=== PATIENT | female | born 1995 | race American Indian/Alaskan Native ===

== ENCOUNTER 2021-03-11 15:21 | Emergency (ER) | payer MEDICAID ==
[2021-03-11] MEDS ORDERED: SODIUM CHLORIDE 0.9% 1000 ML 1,000 ML IV ONE (16:26)
[2021-03-11] MEDS ORDERED: DICYCLOMINE 10 MG CAP PO ONE (16:27)
[2021-03-11] MEDS ORDERED: FAMOTIDINE 20 MG/2 ML INJ IV ONE (16:27)
[2021-03-11] MEDS ORDERED: METOCLOPRAMIDE 10 MG/2 ML INJ IV ONE (16:27)
[2021-03-11] MEDS ORDERED: diphenhydrAMINE 50 MG/ML VIAL IV ONE (16:27)
[2021-03-11 16:58] LABS: Basophils % (Auto) 0.2 % (0.0-1.8); Eosinophils % (Auto) 0.3 % (0.0-4.3); Hematocrit 39.1 % (30.3-42.9); Hemoglobin 12.5 gm/dl (10.1-14.3); Lymphocytes # (Auto) 1.3 K/mm3 (1.2-5.4); Lymphocytes % (Auto) 15.1 % (13.4-35.0); Mean Corpuscular HGB Conc 32 % (30-34); Mean Corpuscular Volume 78 fl (79-97); Monocytes # (Auto) 0.4 K/mm3 (0.0-0.8); Monocytes % (Auto) 4.6 % (0.0-7.3); Platelet Count 186 K/mm3 (140-440); Red Blood Count 5.01 M/mm3 (3.65-5.03); Red Cell Distribution Width 13.6 % (13.2-15.2)
[2021-03-11 17:09] LABS: Alanine Aminotransferase 11 units/L (7-56); Albumin 4.7 g/dL (3.9-5); Blood Urea Nitrogen 10 mg/dL (7-17); Calcium 9.2 mg/dL (8.4-10.2); Hemolysis Index 8
[2021-03-11 17:15] LABS: BUN/Creatinine Ratio 17
[2021-03-11 18:21] LABS: Bilirubin,Urine NEG (Negative); Blood,Urine LG (Negative); Color,Urine Yellow (Yellow); Mucus,Urine FEW /HPF; Protein,Urine <15 mg/dL mg/dL (Negative); Urobilinogen,Urine < 2.0 mg/dL (<2.0)
--- NOTE | 2021-03-11 18:33 | Emergency Department Report ---
ED Abdominal Pain HPI - General Chief Complaint: Abdominal Pain Stated Complaint: ABD PAIN Time Seen by Provider: 03/11/21 16:06 Source: patient Mode of arrival: Ambulatory Limitations: No Limitations - History of Present Illness Initial Comments: This is a 25-year-old female nontoxic, well nourished in appearance, no acute signs of distress presents to the ED with c/o of nausea and vomiting and abdominal pain several days. Patient describes vomiting as food content and yellow gastric acid. Patient describes abdominal pain as cramping and aching with level of 8/10 diffuse. Patient denies chest pain, short of breath, fever, hemoptysis, blood in stool, chills, headache, stiff neck, numbness or tingling. Patient denies any diarrhea or constipation. Denies any blood in stool. Patient denies any recent travels. Patient denies any drug allergies or significant past medical history. MD Complaint: abdominal pain -: week(s) Location: diffuse Radiation: none Migration to: no migration Severity scale (0 -10): 8 Quality: cramping, aching Consistency: constant Improves With: nothing Worsens With: nothing Associated Symptoms: nausea, vomiting. denies: diarrhea, fever, chills, constipation, dysuria, hematemesis, hematochezia, melena, hematuria, anorexia, syncope - Related Data Previous Rx's Medication Instructions Recorded Last Taken Type Dicyclomine [Bentyl] 20 mg PO Q12H PRN #12 tablet 03/11/21 Unknown Rx Ondansetron [Zofran Odt] 4 mg PO Q8HR PRN #12 tab.rapdis 03/11/21 Unknown Rx cephALEXin [Keflex] 500 mg PO Q8HR #21 cap 03/11/21 Unknown Rx Allergies Allergy/AdvReac Type Severity Reaction Status Date / Time No Known Allergies Allergy Unverified 03/11/21 15:27 ED Review of Systems ROS: Stated complaint: ABD PAIN Other details as noted in HPI Comment: All other systems reviewed and negative Constitutional: denies: chills, fever Eyes: denies: eye pain, eye discharge, vision change ENT: denies: ear pain, throat pain Respiratory: denies: cough, shortness of breath, wheezing Cardiovascular: denies: chest pain, palpitations Endocrine: no symptoms reported Gastrointestinal: abdominal pain, nausea, vomiting. denies: diarrhea, constipation, hematemesis, melena, hematochezia Genitourinary: denies: urgency, dysuria, discharge Musculoskeletal: denies: back pain, joint swelling, arthralgia Skin: denies: rash, lesions Neurological: denies: headache, weakness, paresthesias Psychiatric: denies: anxiety, depression Hematological/Lymphatic: denies: easy bleeding, easy bruising ED Past Medical Hx - Past Medical History Previous Medical History?: No - Surgical History Past Surgical History?: No - Medications Home Medications: Home Medications Medication Instructions Recorded Confirmed Last Taken Type Dicyclomine [Bentyl] 20 mg PO Q12H PRN #12 tablet 03/11/21 Unknown Rx Ondansetron [Zofran Odt] 4 mg PO Q8HR PRN #12 tab.rapdis 03/11/21 Unknown Rx cephALEXin [Keflex] 500 mg PO Q8HR #21 cap 03/11/21 Unknown Rx ED Physical Exam - General Limitations: No Limitations General appearance: alert, in no apparent distress - Head Head exam: Present: atraumatic, normocephalic - Eye Eye exam: Present: normal appearance - Neck Neck exam: Present: normal inspection, full ROM. Absent: lymphadenopathy - Respiratory Respiratory exam: Present: normal lung sounds bilaterally. Absent: respiratory distress, wheezes, rales, rhonchi, stridor, chest wall tenderness, accessory muscle use, decreased breath sounds, prolonged expiratory - Cardiovascular Cardiovascular Exam: Present: normal rhythm, tachycardia, normal heart sounds. Absent: irregular rhythm, systolic murmur, diastolic murmur, rubs, gallop - GI/Abdominal GI/Abdominal exam: Present: soft, tenderness (diffuse), normal bowel sounds. Absent: distended, guarding, rebound, rigid, diminished bowel sounds - Extremities Exam Extremities exam: Present: normal inspection, full ROM, normal capillary refill. Absent: tenderness - Back Exam Back exam: Present: normal inspection, full ROM. Absent: tenderness, CVA tenderness (R), CVA tenderness (L), muscle spasm, paraspinal tenderness, vertebral tenderness, rash noted - Neurological Exam Neurological exam: Present: alert, oriented X3, normal gait - Psychiatric Psychiatric exam: Present: normal affect, normal mood - Skin Skin exam: Present: warm, dry, intact, normal color. Absent: rash ED Course Vital Signs 03/11/21 03/11/21 03/11/21 15:32 20:52 20:59 Temperature 99.3 F Pulse Rate 117 H 87 Respiratory 16 16 Rate Blood Pressure 147/86 Blood Pressure 143/86 [Left] O2 Sat by Pulse 97 100 Oximetry - Reevaluation(s) Reevaluation #1: 03/11/21 18:37 Patient is speaking in full sentences with no signs of distress noted. ED Medical Decision Making - Lab Data Result diagrams: 03/11/21 16:33 03/11/21 16:33 Lab Results 03/11/21 03/11/21 03/11/21 Range/Units 16:33 16:33 16:33 WBC 8.9 (4.5-11.0) K/mm3 RBC 5.01 (3.65-5.03) M/mm3 Hgb 12.5 (10.1-14.3) gm/dl Hct 39.1 (30.3-42.9) % MCV 78 L (79-97) fl MCH 25 L (28-32) pg MCHC 32 (30-34) % RDW 13.6 (13.2-15.2) % Plt Count 186 (140-440) K/mm3 Lymph % (Auto) 15.1 (13.4-35.0) % Ferry % (Auto) 4.6 (0.0-7.3) % Eos % (Auto) 0.3 (0.0-4.3) % Baso % (Auto) 0.2 (0.0-1.8) % Lymph # (Auto) 1.3 (1.2-5.4) K/mm3 Ferry # (Auto) 0.4 (0.0-0.8) K/mm3 Eos # (Auto) 0.0 (0.0-0.4) K/mm3 Baso # (Auto) 0.0 (0.0-0.1) K/mm3 Seg Neutrophils % 79.8 H (40.0-70.0) % Seg Neutrophils # 7.1 (1.8-7.7) K/mm3 Sodium 139 (137-145) mmol/L Potassium 4.1 (3.6-5.0) mmol/L Chloride 102.1 (98-107) mmol/L Carbon Dioxide 25 (22-30) mmol/L Anion Gap 16 mmol/L BUN 10 (7-17) mg/dL Creatinine 0.6 (0.6-1.2) mg/dL Estimated GFR > 60 ml/min BUN/Creatinine Ratio 17 % Glucose 92 (65-100) mg/dL Calcium 9.2 (8.4-10.2) mg/dL Total Bilirubin 0.20 (0.1-1.2) mg/dL AST 14 (5-40) units/L ALT 11 (7-56) units/L Alkaline Phosphatase 58 (35-129) units/L Total Protein 7.6 (6.3-8.2) g/dL Albumin 4.7 (3.9-5) g/dL Albumin/Globulin Ratio 1.6 % Lipase 29 (13-60) units/L HCG, Qual Negative (Negative) Urine Color (Yellow) Urine Turbidity (Clear) Urine pH (5.0-7.0) Ur Specific Bynum (1.003-1.030) Urine Protein (Negative) mg/dL Urine Glucose (UA) (Negative) mg/dL Urine Ketones (Negative) mg/dL Urine Blood (Negative) Urine Nitrite (Negative) Urine Bilirubin (Negative) Urine Urobilinogen (<2.0) mg/dL Ur Leukocyte Esterase (Negative) Urine WBC (Auto) (0.0-6.0) /HPF Urine RBC (Auto) (0.0-6.0) /HPF U Epithel Cells (Auto) (0-13.0) /HPF Urine Mucus /HPF 03/11/21 Range/Units Unknown WBC (4.5-11.0) K/mm3 RBC (3.65-5.03) M/mm3 Hgb (10.1-14.3) gm/dl Hct (30.3-42.9) % MCV (79-97) fl MCH (28-32) pg MCHC (30-34) % RDW (13.2-15.2) % Plt Count (140-440) K/mm3 Lymph % (Auto) (13.4-35.0) % Ferry % (Auto) (0.0-7.3) % Eos % (Auto) (0.0-4.3) % Baso % (Auto) (0.0-1.8) % Lymph # (Auto) (1.2-5.4) K/mm3 Ferry # (Auto) (0.0-0.8) K/mm3 Eos # (Auto) (0.0-0.4) K/mm3 Baso # (Auto) (0.0-0.1) K/mm3 Seg Neutrophils % (40.0-70.0) % Seg Neutrophils # (1.8-7.7) K/mm3 Sodium (137-145) mmol/L Potassium (3.6-5.0) mmol/L Chloride (98-107) mmol/L Carbon Dioxide (22-30) mmol/L Anion Gap mmol/L BUN (7-17) mg/dL Creatinine (0.6-1.2) mg/dL Estimated GFR ml/min BUN/Creatinine Ratio % Glucose (65-100) mg/dL Calcium (8.4-10.2) mg/dL Total Bilirubin (0.1-1.2) mg/dL AST (5-40) units/L ALT (7-56) units/L Alkaline Phosphatase (35-129) units/L Total Protein (6.3-8.2) g/dL Albumin (3.9-5) g/dL Albumin/Globulin Ratio % Lipase (13-60) units/L HCG, Qual (Negative) Urine Color Yellow (Yellow) Urine Turbidity Slightly-cloudy (Clear) Urine pH 6.0 (5.0-7.0) Ur Specific Bynum 1.018 (1.003-1.030) Urine Protein <15 mg/dl (Negative) mg/dL Urine Glucose (UA) Neg (Negative) mg/dL Urine Ketones Neg (Negative) mg/dL Urine Blood Lg (Negative) Urine Nitrite Neg (Negative) Urine Bilirubin Neg (Negative) Urine Urobilinogen < 2.0 (<2.0) mg/dL Ur Leukocyte Esterase Lg (Negative) Urine WBC (Auto) 42.0 H (0.0-6.0) /HPF Urine RBC (Auto) 8.0 (0.0-6.0) /HPF U Epithel Cells (Auto) 9.0 (0-13.0) /HPF Urine Mucus Few /HPF - Radiology Data [facility] [address] [place] [address] Cat Scan Report Signed Patient: CON INFANTE MR#: [id number] [birth year] : 1995 Acct:[id number] Age/Sex: 25 / F ADM Date: 03/11/21 Loc: ED Attending Dr: Maury tripp Physician: GHASSAN HARRIS NP Date of Service: 03/11/21 Procedure(s): CT abdomen pelvis w con Accession Number(s): [id number] cc: GHASSAN HARRIS NP CT ABDOMEN AND PELVIS WITH CONTRAST INDICATION: abd pain with n/v CONTRAST: 100 cc Omnipaque 300 IV COMPARISON: None available. All CT scans at this location are performed using CT dose reduction for ALARA by means of automated exposure control. FINDINGS: Lung bases are clear. No pneumoperitoneum is seen. No significant ventral hernia is noted. Adenopathy is seen. Gallbladder and bile ducts appear within normal limits. No urinary obstructive changes are seen. No abdominal masses are noted. No evidence of bowel obstruction is seen. Mild increase in right colonic stool burden is noted without dilatation. Left colon is difficult to evaluate due to lack of distention. Appendix is not identified but no inflammation is seen in the area of the cecum. There appear to be several bilateral ovarian cysts measuring up to 2.7 cm on the left. There is also suggestion of a small right hydrosalpinx. A mildly inflamed appearance is seen in the lower pelvis in both adnexal areas. Only minimal free fluid is seen. IMPRESSION: Mildly abnormal findings in the pelvis as above. The possible inflammation in this area might suggest PID. I would suggest pelvic ultrasound and clinical correlation. Signer Name: Rolly Garg MD Signed: 03/11/2021 7:15 PM Workstation Name: [id number] Transcribed By: Dictated By: Rolly Garg MD Electronically Authenticated By: Rolly Garg MD Signed Date/Time: 03/11/211914 DD/ 10 TD/TT: PELVIC ULTRASOUND INDICATION: pelvic pain with abnormal CT results COMPARISON: CT abdomen and pelvis tonight TECHNIQUE: Transabdominal and endovaginal FINDINGS: Uterus: Measures 8.8 x 3.6 x 7.1 cm. Endometrial stripe measures 10 mm. No fluid is seen within the endometrium. No focal lesions are seen. Right ovary: Measures 3.3 cm in length and shows minimal follicular-type cysts. Flow is noted. No obvious hydrosalpinx was seen. Left ovary: Measures 3.5 cm in length and shows a simple 2.1 cm cyst. Flow is noted in the ovary. Only a trace of free fluid is noted. IMPRESSION: Left ovarian cyst is seen which probably is physiologic. No other significant lesions are seen and findings do not support the suggestion on CT of the right hydrosalpinx or significant adnexal pathology. No significant evidence of tubo-ovarian abscess or tubo-ovarian complex is seen. Signer Name: Rolly Garg MD Signed: 03/11/2021 8:05 PM Workstation Name: [id number] PELVIC ULTRASOUND INDICATION: pelvic pain with abnormal CT results COMPARISON: CT abdomen and pelvis tonight TECHNIQUE: Transabdominal and endovaginal FINDINGS: Uterus: Measures 8.8 x 3.6 x 7.1 cm. Endometrial stripe measures 10 mm. No fluid is seen within the endometrium. No focal lesions are seen. Right ovary: Measures 3.3 cm in length and shows minimal follicular-type cysts. Flow is noted. No obvious hydrosalpinx was seen. Left ovary: Measures 3.5 cm in length and shows a simple 2.1 cm cyst. Flow is noted in the ovary. Only a trace of free fluid is noted. IMPRESSION: Left ovarian cyst is seen which probably is physiologic. No other significant lesions are seen and findings do not support the suggestion on CT of the right hydrosalpinx or significant adnexal pathology. No significant evidence of tubo-ovarian abscess or tubo-ovarian complex is seen. Signer Name: Rolly Garg MD Signed: 03/11/2021 8:05 PM Workstation Name: [id number] - Medical Decision Making This is a 25-year-old female that presents with abdominal pain, nausea vomiting and suspected PID. Patient is stable and was examined by me. Negative signs of symptoms of appendicitis. Labs obtained. UA obtained. CT of abdomen and Doppler ultrasound OB with transvaginal obtained and dictated by the radiologist. Patient is notified of the report with no questions noted by the patient. Vital signs are stable prior to discharge. Patient received medical treatment in the ED which patient stated symptoms has resovled and subsided. Patient received Rocephin and azithromycin. Was instructed note to operate any machinery due to possible drowsiness and stated someone will drive the patient home. A by mouth challenge has been obtained and patient tolerated well with no nausea vomiting. Patient was also instructed to Follow-up with a primary care doctor in 3-5 days or if symptoms worsen and continue return to emergency room as soon as possible. At time of discharge, the patient does not seem toxic or ill in appearance. No acute signs of distress noted. Patient agrees to discharge treatment plan of care. No further questions noted by the patient. Critical care attestation.: If time is entered above; I have spent that time in minutes in the direct care of this critically ill patient, excluding procedure time. ED Disposition Clinical Impression: PID (acute pelvic inflammatory disease) UTI (urinary tract infection) Qualifiers: Urinary tract infection type: acute cystitis Hematuria presence: without hematuria Qualified Code(s): N30.00 - Acute cystitis without hematuria Abdominal pain Qualifiers: Abdominal location: generalized Qualified Code(s): R10.84 - Generalized abdominal pain Nausea & vomiting Qualifiers: Vomiting type: unspecified Qualified Code(s): R11.2 - Nausea with vomiting, unspecified Disposition: 01 HOME / SELF CARE / HOMELESS Is pt being admited?: No Does the pt Need Aspirin: No Condition: Stable Instructions: Abdominal Pain, Adult, Urinary Tract Infection, Adult, Nausea and Vomiting, Adult, Pelvic Inflammatory Disease, [id number], Abdominal Pain (ED) Additional Instructions: Follow-up with a primary care and OBGYN doctor in 3-5 days or if symptoms worsen and continue return to emergency room as soon as possible. Prescriptions: Dicyclomine [Bentyl] 20 mg PO Q12H PRN #12 tablet PRN Reason: Abdominal Pain cephALEXin [Keflex] 500 mg PO Q8HR #21 cap Ondansetron [Zofran Odt] 4 mg PO Q8HR PRN #12 tab.rapdis PRN Reason: Nausea Referrals: PRIMARY CAREMD [Primary Care Provider] - 3-5 Days MARGY JUDD MD [Staff Physician] - 3-5 Days [facility] [Provider Group] - 3-5 Days [facility] [Provider Group] - 3-5 Days Forms: Work/School Release Form(ED) Time of Disposition: 21:12
--- NOTE | 2021-03-11 19:19 | Cat Scan Report ---
CT ABDOMEN AND PELVIS WITH CONTRAST INDICATION: abd pain with n/v CONTRAST: 100 cc Omnipaque 300 IV COMPARISON: None available. All CT scans at this location are performed using CT dose reduction for ALARA by means of automated e xposure control. FINDINGS: Lung bases are clear. No pneumoperitoneum is seen. No significant ventral hernia is noted. Adenopathy is seen. Gallbladder and bile ducts appear within normal limits. No urinary obstructive ch anges are seen. No abdominal masses are noted. No evidence of bowel obstruction is seen. Mild increas e in right colonic stool burden is noted without dilatation. Left colon is difficult to evaluate due to lack of distention. Appendix is not identified but no inflammation is seen in the area of the cecu m. There appear to be several bilateral ovarian cysts measuring up to 2.7 cm on the left. There is also suggestion of a small right hydrosalpinx. A mildly inflamed appearance is seen in the lower pelvis in both adnexal areas. Only minimal free fluid is seen. IMPRESSION: Mildly abnormal findings in the pelvis as above. The possible inflammation in this area m ight suggest PID. I would suggest pelvic ultrasound and clinical correlation. Signer Name: Rolly Garg MD Signed: 03/11/2021 7:15 PM Workstation Name: [id number]
[2021-03-11] MEDS ORDERED: HYDROmorphone 1 MG/1 ML INJ IV ONE (20:45)
[2021-03-11] MEDS ORDERED: ONDANSETRON 4 MG/2 ML INJ IV ONE (20:45)
[2021-03-11] MEDS ORDERED: cefTRIAXone/NS 1 GM/50 ML 1 GM/50 ML BAG IV ONE (20:55)
[2021-03-11] MEDS ORDERED: AZITHROMYCIN 250 MG TAB PO ONE (20:57)
[2021-03-11 21:00] VITALS: BP 143/86
--- NOTE | 2021-03-11 21:09 | Ultrasound Report ---
PELVIC ULTRASOUND INDICATION: pelvic pain with abnormal CT results COMPARISON: CT abdomen and pelvis tonight TECHNIQUE: Transabdominal and endovaginal FINDINGS: Uterus: Measures 8.8 x 3.6 x 7.1 cm. Endometrial stripe measures 10 mm. No fluid is seen within the e ndometrium. No focal lesions are seen. Right ovary: Measures 3.3 cm in length and shows minimal follicular-type cysts. Flow is noted. No obv ious hydrosalpinx was seen. Left ovary: Measures 3.5 cm in length and shows a simple 2.1 cm cyst. Flow is noted in the ovary. Only a trace of free fluid is noted. IMPRESSION: Left ovarian cyst is seen which probably is physiologic. No other significant lesions are seen and findings do not support the suggestion on CT of the right hydrosalpinx or significant adnex al pathology. No significant evidence of tubo-ovarian abscess or tubo-ovarian complex is seen. Signer Name: Rolly Garg MD Signed: 03/11/2021 9:05 PM Workstation Name: [id number]
== END 2021-03-11 21:33 | disposition home or self-care (01) ==
LOC: ED 15:21
DX: N73.9 Female pelvic inflammatory disease, unspecified (principal); N39.0 Urinary tract infection, site not specified; Z79.899 Other long term (current) drug therapy
CPT/HCPCS: 36415; 74177; 76830; 76856; 80053; 81001; 83690; 84703; 85025; 87086; 96361; 96365; 96375; 99284; J0696; J1170; J1200; J2405; J2765; J3490; J7030; Q9967; 93975; Q0162

== ENCOUNTER 2021-11-15 08:12 | Emergency (ER) | payer MEDICAID ==
[2021-11-15 08:49] VITALS: BP 162/101
[2021-11-15 10:01] LABS: Alanine Aminotransferase 25 units/L (7-56); Albumin 5.6 g/dL (3.9-5); Blood Urea Nitrogen 21 mg/dL (7-17); Calcium 9.9 mg/dL (8.4-10.2); Hemolysis Index 4
[2021-11-15 10:02] LABS: BUN/Creatinine Ratio 30
[2021-11-15 10:55] LABS: Basophils % (Auto) 0.2 % (0.0-1.8); Hematocrit 43.5 % (30.3-42.9); Hemoglobin 14.7 gm/dl (10.1-14.3); Lymphocytes # (Auto) 1.5 K/mm3 (1.2-5.4); Lymphocytes % (Auto) 15.8 % (13.4-35.0); Mean Corpuscular HGB Conc 34 % (30-34); Mean Corpuscular Volume 77 fl (79-97); Monocytes # (Auto) 0.5 K/mm3 (0.0-0.8); Monocytes % (Auto) 5.5 % (0.0-7.3); Platelet Count 224 K/mm3 (140-440); Red Blood Count 5.62 M/mm3 (3.65-5.03); Red Cell Distribution Width 13.8 % (13.2-15.2)
[2021-11-15 11:17] LABS: HCG Qualitative,Urine Negative (Negative)
[2021-11-15 12:21] LABS: Color,Urine Amber (Yellow)
[2021-11-15 12:23] LABS: Bilirubin,Urine 1+ (Negative); Blood,Urine Negative (Negative); Ictotest,Urine Positive (Negative)
== END 2021-11-16 08:46 | disposition left against medical advice (07) ==
LOC: ED 08:12
DX: R11.10 Vomiting, unspecified (principal); Z53.21 Procedure and treatment not carried out due to patient leaving prior to being seen by health care provider
CPT/HCPCS: 36415; 80053; 81001; 81025; 85025